=== PATIENT | female | born 1975 | race Caucasian/White ===

== ENCOUNTER 2017-01-06 18:30 | Emergency (ER) | payer BC ==
--- NOTE | ~2017-01-06 | ER ---
PATIENT'S NAME: DALILA RAYA [facility] AGE: 41 Y [address] ROOM: [place] [address] LOCATION: ED ADMIT DATE: 01/06/2017 ER/Outpatient Report DISCHARGE DATE: 01/06/2017 FAMILY PHYSICIAN: Adonay Valdez MD ATTENDING PHYSICIAN: Ivan Brooks Time of Arrival: 1830 hours. Time of Evaluation: 1837 hours. CHIEF COMPLAINT: Vomiting. HISTORY OF PRESENT ILLNESS: This patient is a 41-year-old female who presents to the emergency department today with chief complaint of vomiting. The patient has a history of metastatic breast cancer. She is currently on chemotherapy and last chemotherapy was on Tuesday. She has been taking Neupogen. She reports that she has not been able to keep anything down for the past day. She has had vomiting x10. She has been unable to take her pills. Denies any fevers or chills. No urinary frequency, urgency, or painful urination. No diarrhea or constipation. No blood in her stool. No dark tarry stools. She has had a chronic cough. Denies any shortness of breath. No chest pain. PAST MEDICAL HISTORY: Stage IV metastatic breast cancer with mets to the bone and lung. PAST SURGICAL HISTORY: , bilateral mastectomies, port on the right chest. SOCIAL HISTORY: The patient denies any tobacco, alcohol, or illicit drug use. ALLERGIES: SULFA. MEDICATIONS: Please see list. ONCOLOGIST: Dr. Mcleod. REVIEW OF SYSTEMS: All systems are reviewed by myself and are negative with the exception of those discussed in HPI and past medical history. PATIENT'S NAME: DALILA RAYA [facility] AGE: 41 Y [address] ROOM: [place] [address] LOCATION: ED ADMIT DATE: 01/06/2017 ER/Outpatient Report DISCHARGE DATE: 01/06/2017 FAMILY PHYSICIAN: Adonay Valdez MD ATTENDING PHYSICIAN: Ivan Brooks PHYSICAL EXAMINATION: VITAL SIGNS: Weight 63.4 kg, blood pressure 153/79, pulse 98, respiratory rate 20, temperature 97.2, oxygen saturation 98% on room air. GENERAL: The patient is a 41-year-old female, who appears stated age, in no acute distress at this time. HEENT: Head: Normocephalic, atraumatic. Pupils are equal, round, and reactive to light and accommodation. Extraocular motions are intact. Nares are patent bilaterally. TMs are clear. Oropharynx is clear. Mucous membranes are moist. NECK: Supple. There is no nuchal rigidity. CARDIOVASCULAR: Regular rate and rhythm. No murmurs, rubs, or gallops. LUNGS: Clear to auscultation bilaterally. No wheezes, rales, or rhonchi. ABDOMEN: Soft, nontender, and nondistended. No rebound, rigidity, or guarding. MUSCULOSKELETAL: The patient moves all 4 extremities. SKIN: Warm and dry. LABORATORY DATA AND X-RAYS: Obtained. Lactate is normal. CBC: White blood cell count 41.4, hemoglobin 8.8, hematocrit 25.8, platelets 109. ANC is 41.4, 1% bands. Coags are normal. Procalcitonin is 0.14. CMP is remarkable for sodium 133, potassium 3.1, otherwise normal. Alkaline phosphatase 174. LFTs are normal. CK, CK- MB, and troponins are all normal. Urine hCG is negative. CT scan of the chest is obtained. I have discussed the results with the radiologist. She has no evidence of PE. There is a worsening right pleural effusion with lung mets. It is worse compared to her PET scan 1 month ago. IMPRESSION: 1. Large right pleural effusion with lung metastasis secondary to stage IV breast cancer. 2. Nausea and vomiting. 3. Initial visit. EMERGENCY DEPARTMENT COURSE: The patient was brought back to the examination room. Seen and evaluated by myself. A port is established. The patient was given 1 L of normal saline. She was given 10 mg of Reglan IV as well as 25 mg of Benadryl IV. This resulted in significant improvement in the patient's symptoms. She is tolerating p.o. here in the emergency department. I have discussed the results with the patient. She is having no shortness of breath right now. She feels better. She is requesting to go home. I have discussed with the radiologist possible thoracentesis tomorrow. The patient does request to go home at this time. She reports she feels much better. We will arrange for thoracentesis tomorrow. We have contacted centralized scheduling that Radiology does know as well. This will be set up for tomorrow. The patient also reports she has Neupogen tomorrow. I have discussed. I would like her to follow up with Dr. PATIENT'S NAME: DALILA RAYA [facility] AGE: 41 Y [address] ROOM: [place] [address] LOCATION: ED ADMIT DATE: 01/06/2017 ER/Outpatient Report DISCHARGE DATE: 01/06/2017 FAMILY PHYSICIAN: Adonay Valdez MD ATTENDING PHYSICIAN: Ivan Brooks, her primary care doctor in 2 days for re-evaluation. I have discussed hjzbbr-de-hutl instructions including worsening symptoms, chest pain, worsening shortness of breath, fevers, or any other concerns to return to the emergency department as soon as possible. The patient is agreeable without further questions. DISPOSITION: The patient is discharged home in good condition. DO JUAN JOSE PLASENCIA/modl /[id number] d: 01/07/17211 t: 01/12/17 1315, OUTPATIENT REPORT
[2017-01-06 19:13] LABS: HEMATOCRIT 25.8 % (33.0-46.0); HEMOGLOBIN 8.8 g/dL (10.0-15.0); MCHC 34.1 gm/dL (32.0-36.5); MCV 90.8 fl (83.0-98.0); MPV 10.2 fl (9.4-12.4); PLATELET COUNT 109 K/uL (150-450); RBC 2.84 M/uL (3.50-5.50); RDW-CV 20.6 % (11.9-14.6)
[2017-01-06 19:17] LABS: WBC 41.4 K/uL (4.0-11.0)
[2017-01-06 19:23] LABS: PROTIME 10.9 SECONDS (9.6-11.1)
[2017-01-06 19:36] LABS: ALBUMIN 3.9 gm/dL (3.5-5.0); ALK PHOS 174 IU/L (33-138); ALT 22 IU/L (12-78); ANION GAP 14.1 (10.0-19.0); AST 28 IU/L (10-40); BLOOD UREA NITROGEN 13 mg/dL (6-24); CALCIUM 8.8 mg/dL (8.5-10.5); CHLORIDE 96 mMol/L (96-110); CO2 26 mMol/L (22-32); CPK 39 IU/L (21-215); CREATININE 0.8 mg/dL (0.5-1.1); ESTIMATED GFR (MDRD EQUATION) > 60; POTASSIUM 3.1 mMol/L (3.7-5.1); SODIUM 133 mMol/L (135-145); TOTAL PROTEIN 7.6 g/dL (6.0-8.4)
[2017-01-06 19:37] LABS: TOTAL BILIRUBIN 0.6 mg/dL (0.0-1.5)
[2017-01-06 19:40] LABS: ABSOLUTE NEUTROPHIL CT (ANC) 41.4 K/uL (1.8-7.8); BANDED NEUTROPHIL # 0.4 K/uL (0.0-0.1); BANDED NEUTROPHILS % 1 %; LYMPHOCYTE # 0.4 K/uL (0.8-4.0); LYMPHOCYTE % 1 %; SEGMENTED NEUTROPHIL % 99 %
[2017-01-06 20:27] LABS: BILIRUBIN URINE NEGATIVE (NEGATIVE); BLOOD URINE NEGATIVE /UL (NEGATIVE); COLOR URINE STRAW (YELLOW); GLUCOSE URINE 50 mg/dL (NEGATIVE); KETONE URINE 5 mg/dL (NEGATIVE); LEUKOCYTES URINE NEGATIVE /UL (NEGATIVE); NITRITE URINE NEGATIVE (NEGATIVE); PROTEIN URINE 30 mg/dL (NEGATIVE); SPEC GRAVITY URINE 1.005 (1.003-1.035); TURBIDITY URINE CLEAR (CLEAR); UROBILINOGEN URINE NORMAL (NORMAL)
[2017-01-06 20:34] LABS: BACTERIA URINE NEGATIVE (NEGATIVE); EPITHELIAL URINE 0-2 #/HPF (NEGATIVE); RBC URINE NEGATIVE #/HPF (NEGATIVE); WBC URINE 0-2 #/HPF (NEGATIVE)
[2017-01-07] MEDS ORDERED: K-TAB 10MEQ10 MEQ PO (09:32)
[2017-01-07] MEDS ORDERED: ZOFRAN8 MG PO (09:33)
[2017-01-07] MEDS ORDERED: ROXICODONE 5MG (5 MG PO (09:33)
[2017-01-07] MEDS ORDERED: ATIVAN 0.5MG0.5 MG PO (09:34)
[2017-01-07] MEDS ORDERED: COMPAZINE10 MG PO (09:34)
[2017-01-07] MEDS ORDERED: OXYCONTIN60 MG PO (09:34)
[2017-03-03] MEDS ORDERED: TESSALON PERLE100 MG PO (13:11)
[2017-03-03] MEDS ORDERED: IBUPROFEN800 MG PO (13:12)
[2017-04-20] MEDS ORDERED: VALIUM2 MG PO (09:42)
[2017-04-20] MEDS ORDERED: TYLENOL325 MG PO (09:43)
== END 2017-01-06 21:44 | disposition disaster alternative care site (69) ==
LOC: GMED 18:30
PROVIDERS: Emergency Medicine
DX: R11.2 Nausea with vomiting, unspecified (principal); C50.919 Malignant neoplasm of unspecified site of unspecified female breast; C78.00 Secondary malignant neoplasm of unspecified lung; J91.0 Malignant pleural effusion; Z88.2 Allergy status to sulfonamides
CPT/HCPCS: J1200; J1642; J2765; J7030; Q9967

== ENCOUNTER → 2017-01-07 | Outpatient (CLI) | payer BC ==
[~2017-01-07] MED LIST: ATIVAN 0.5MG0.5 MG PO; AUGMENTIN250 MG PO; COMPAZINE10 MG PO; DECADRON4 MG PO; DILANTIN100 MG PO; IBUPROFEN800 MG PO; K-TAB 10MEQ10 MEQ PO; LIDOCAINE-PRIL1 EACH TOP; MAGNESIUM400 M1 PO; OXYCONTIN60 MG PO; PROZAC40 MG PO; ROBITUSSIN100 MG/5 M PO; ROXICODONE 5MG (5 MG PO; SENNA8.6 MG PO; SEROQUEL25 MG PO; TESSALON PERLE100 MG PO; TYLENOL325 MG PO; VALIUM2 MG PO; XGEVA120 MG/1.7 SUB-Q; ZOFRAN8 MG PO; ZYVOX600 MG PO
== END | disposition disaster alternative care site (69) ==
LOC: GOPD 08:30
PROC: 0W993ZZ Drainage of Right Pleural Cavity, Percutaneous Approach (ICD-10-PCS; principal; 2017-01-07)
DX: J90 Pleural effusion, not elsewhere classified (principal)
CPT/HCPCS: J1642

== ENCOUNTER 2017-01-08 15:31 | Observation (INO) | payer BC ==
[~2017-01-08] VITALS: Ht 172.7 cm; Wt 63.0 kg
--- NOTE | ~2017-01-08 | CON ---
PATIENT'S NAME: DALILA ANNA [facility] AGE: 41 Y [address] ROOM: [address] [address] LOCATION: GPCU ADMIT DATE: 01/08/2017 Consultation DISCHARGE DATE: FAMILY PHYSICIAN: Adonay Valdez MD ATTENDING PHYSICIAN: CHANDANA SO REFERRING PHYSICIAN: Chandana So MD REASON FOR CONSULT: Elevated cardiac enzymes. HISTORY OF PRESENT ILLNESS: Ms. Anna is a 41-year-old female with history of stage IV metastatic breast cancer. She had been symptomatic with complaints of increasing shortness of breath. She was found to have right-sided pleural effusion and she underwent thoracentesis few days ago. However, she continued to remain short of breath and presently she is short of breath on walking very short distances. She denied any history of chest pain. She also complained of cough with mucoid and mucopurulent expectoration. She denied any fever. She also complained of heart palpitations. She had nausea and yesterday she had diarrhea. In the emergency room, she was found to have tachycardia with a pulse rate of 115 beats per minute and blood pressure of 106/85 mmHg and oxygen saturation of 99% on room air. Her troponin was mildly elevated at 0.118. The patient had workup for PE with CT scan, which was negative. Also, it showed decreased volume in the right pleural effusion. She was also noted to have metastatic involvement of the pleura and lung parenchyma with multiple small pleural and parenchymal nodules. There is also mediastinal hilar adenopathy and large metastatic sternal mass. She was admitted for further management. PAST MEDICAL HISTORY: Stage IV breast cancer, status post bilateral mastectomy. Presently, the patient is on chemotherapy. PAST SURGICAL HISTORY: Bilateral mastectomy, fibroid removal, hernia. FAMILY HISTORY: Both her parents are alive. Her father has prostate cancer. SOCIAL HISTORY: The patient stated that her from non-Hodgkin's lymphoma. She has 2 children. She is a nonsmoker and nonalcoholic. PHYSICAL EXAMINATION: GENERAL: She is awake, alert, and oriented and in no distress. VITAL SIGNS: Her pulse rate is 97 beats per minute. Blood pressure is 121/65, temperature 98.2, respiratory rate 16. PATIENT'S NAME: DALILA ANNA [facility] AGE: 41 Y [address] ROOM: [id number] [place], [place] [address] LOCATION: GPCU ADMIT DATE: 01/08/2017 Consultation DISCHARGE DATE: FAMILY PHYSICIAN: Adonay Valdez MD ATTENDING PHYSICIAN: CHANDANA SO HEENT: Her head is atraumatic and normocephalic. NECK: No significant jugular venous distention is present. CVS: S1 and S2 are audible. They are regular in rate and rhythm with no audible murmur. RESPIRATORY: Bilateral vesicular breath sounds are audible. Breath sounds are diminished at the right base. Also percussion note is dull in the right base. ABDOMEN: Soft and nontender. Bowel sounds are present. EXTREMITIES: Showed no significant pedal edema. NEUROLOGIC: The patient is awake, alert, and oriented. LABORATORY DATA: EKG is sinus tachycardia at 102 beats per minute. No acute ST-T wave changes. Sodium 138, potassium 3.2, chloride 106, CO2 of 21, BUN 17, creatinine 0.7. AST 16, ALT 20. CPK 31, CK-MB 1. Troponin 0.118, 0.103, 0.112, and the last set was 0.097. BNP 360. White blood cell count 6.8, hemoglobin 7.5, platelet count 54. CT scan showed no findings of pulmonary embolism. Decreased volume of right pleural effusion was noted. Metastatic involvement of pleura and lung parenchyma with multiple small pleural and parenchymal nodules were noted. Mediastinal and hilar adenopathy, large metastatic sternal mass. ASSESSMENT AND PLAN: 1. Stage IV metastatic breast cancer. 2. Severe anemia. 3. Thrombocytopenia. 4. Nausea and vomiting. 5. Elevated cardiac troponin. 6. Right-sided pleural effusion. Cardiology was consulted for elevated troponin. Her CPK and CK-MB levels are normal. Her serial troponin trend is not suggestive of acute coronary syndrome. Minimal elevation in troponin is likely secondary to demand-supply mismatch due to severe anemia and patient was tachycardic. Dyspnea is likely due to pleural effusion and severe anemia. Since the patient is on chemotherapy, we will obtain 2D echocardiogram to evaluate left ventricular function. Her symptomatology and presentation is not suggestive of acute coronary syndrome. Management of metastatic breast cancer, anemia, and thrombocytopenia per primary care team. The plan of care was discussed with the patient and the nursing. Thank you for allowing us in taking part in the care of this pleasant lady. We will follow the patient along with you. BISHOP KHAN MD PATIENT'S NAME: DALILA ANNA [facility] AGE: 41 Y [address] ROOM: [place] [address] [facility] ADMIT DATE: 01/08/2017 Consultation DISCHARGE DATE: FAMILY PHYSICIAN: Adonay Valdez MD ATTENDING PHYSICIAN: CHANDANA SO/moe /[id number] d: 01/09/17 0928 t: 01/19/17 1601, CONSULTATION REPORT
--- NOTE | ~2017-01-08 | CON ---
PATIENT'S NAME: DALILA RAYA [facility] AGE: 41 Y [address] ROOM: [place] [address] LOCATION: [facility] ADMIT DATE: 01/08/2017 Consultation DISCHARGE DATE: FAMILY PHYSICIAN: Adonay Valdez MD ATTENDING PHYSICIAN: CHANDANA TOBAR ADDENDUM: CURRENT MEDICATIONS: The patient is on, 1. Oxycodone 40 mg b.i.d. 2. Lorazepam 1 mg at bedtime p.r.n. 3. Benzonatate 100 mg q.4 hours p.r.n. 4. Guaifenesin 100 mg q.4 hours p.r.n. 5. Acetaminophen 1000 mg q.i.d. p.r.n. 6. Ipratropium-albuterol inhaler q.4 hours p.r.n. 7. Senna 1 tablet p.r.n. 8. Prochlorperazine 10 mg q.4 hours p.r.n. 9. Oxycodone 10 mg q.4 hours p.r.n. 10. Ondansetron 8 mg q.4 hours p.r.n. 11. Lorazepam 0.5 mg t.i.d. p.r.n. 12. Ibuprofen 200 mg q.6 hours p.r.n. 13. Potassium chloride 20 mEq b.i.d. 14. Filgrastim 480 mcg subcu. 15. Gemcitabine, dexamethasone, and cisplatin. MD PARTH JADE/modl /[id number] d: 01/09/17 0957 t: 01/19/17 1606, CONSULTATION REPORT
--- NOTE | ~2017-01-08 | DS ---
PATIENT'S NAME: DALILA ANNA [facility] AGE: 41 Y [address] ROOM: [id number] [place], [place] [address] LOCATION: GPCU ADMIT DATE: 01/08/2017 Discharge Summary DISCHARGE DATE: 01/09/2017 FAMILY PHYSICIAN: Adonay Valdez MD ATTENDING PHYSICIAN: Kareem So FINAL/PRIMARY/AND DISCHARGE DIAGNOSES: Dyspnea and tachycardia secondary to hypovolemia and recent pleural effusion drainage. ADDITIONAL DIAGNOSES: 1. Elevated troponin, likely the supply-demand mismatch. 2. History of stage IV breast cancer, on chemotherapy treatment. 3. Acute kidney injury, resolved. 4. Cough. 5. Anemia of chronic disease as well as secondary due to antineoplastic agents. DISCHARGE LABORATORIES: CBC on 01/09/2017 showed hemoglobin 7.85, hematocrit 22.3, platelets 54. WBC is 6.8. Procalcitonin was normal. Complete metabolic panel showed sodium of 138, potassium 3.2, chloride 21, calcium 6.8, BUN 17, creatinine 0.7. GFR greater than 60. IMAGING: CT, PE protocol on 01/08/[address] findings of pulmonary embolism, but resolved pleural effusion. Metastatic involvement of pleura and lung parenchyma with small nodules as well as a large metastatic sternal mass. Implanted vascular access catheter that was in place. CONSULTATIONS: Dr. Reddy, [facility] Cardiology, 01/09/2017. Echocardiogram 01/09/2017, pending. BRIEF HOSPITAL COURSE: Ms Anna is a 41-year-old female with a past medical history as noted above, is admitted for the above complaint. She was dyspneic as well as tachycardic. She received 2 L of normal saline bolus as well as maintenance fluids. She was tolerating her diet well and ambulating well upon discharge. Her acute kidney injury resolved and she was feeling much better. She did have a delutional anemia of 9.1, dropped down to 7.5. No evidence of acute blood loss. The patient overall tolerated her hospitalization well. She was tolerating a diet and ambulating without significant dyspnea or tachycardia at the conclusion of her hospitalization. She was discharged home in a stable fashion to follow up with her oncologist for chemotherapy and consideration of transfusion. She will also need to follow up with primary care provider within 1 week. PATIENT'S NAME: DALILA ANNA [facility] AGE: 41 Y [address] ROOM: [facility] [place], [place] [address] LOCATION: GPCU ADMIT DATE: 01/08/2017 Discharge Summary DISCHARGE DATE: 01/09/2017 FAMILY PHYSICIAN: Adonay Valdez MD ATTENDING PHYSICIAN: Kareem So FOLLOWUP RECOMMENDATIONS: 1. Follow up with primary oncologist, 01/10/2017, for chemotherapy and consideration of transfusion versus other management. 2. Follow up with primary care provider within 1 week. 3. Drink plenty of fluids. If there is any worsening of your symptoms, please come to the [facility], notify your oncologist, or go to the ER. DISCHARGE CONDITION: Stable. PROGNOSIS: Poor. MD KIMBERLEY NOLAN/moe /[id number] d: 01/10/17925 t: 01/11/17 0958, DISCHARGE SUMMARY
--- NOTE | ~2017-01-08 | HP ---
PATIENT'S NAME: DALILA ANNA [facility] AGE: 41 Y [address] ROOM: [facility] [place] [place], [place] [address] LOCATION: GPCU ADMIT DATE: 01/08/2017 History & Physical DISCHARGE DATE: FAMILY PHYSICIAN: Adonay Valdez MD ATTENDING PHYSICIAN: CHANDANA TOBAR DATE OF SERVICE: CHIEF COMPLAINT: "I am short of breath." HISTORY OF PRESENT ILLNESS: Ms. Anna is a 41-year-old female with a history of stage IV metastatic breast cancer, who comes in as admission to [facility] Emergency Department for elevated troponins as well as tachycardia. The patient was in her usual state of health when she began experiencing shortness of breath. She was previously seen for a right pleural effusion and underwent thoracentesis 2 days prior to admission. The patient since that time has had significant shortness of breath. She has also felt like heart has been racing. Because of those reasons, the patient decided to present to the emergency department for further evaluation and management. Upon reaching the emergency department, the patient had pulse 115, blood pressure 106/85, respirations 20, and 99% on room air. The patient had a number of tests performed including a CRP, which was elevated at 4.16. Troponin was elevated at 0.118. The patient also had GFR 54, alkaline phosphatase 153, BUN 28, creatinine 1.1, glucose 119, and calcium 7.9. Procalcitonin was elevated at 0.08. CBC showed an elevation with WBC at 11.4, hemoglobin 9.1, hematocrit 28.6, and platelets 84. The patient also had a chest x-ray, which did not show significant changes. Because of the concern for pulmonary embolism given her metastatic cancer, the CT PE protocol was obtained, which showed a decreased volume of the right pleural effusion since prior CT imaging with evidence of thoracentesis, metastatic involvement of the pleura and lung parenchyma with multiple small pleural and parenchymal nodules identified. There was also mediastinal hilar adenopathy as well as a large metastatic sternal mass. There was no other significant abnormalities that were noted. The patient was then transferred to the floor for further evaluation and management. She was started on heparin drip at that time as well. Upon reaching the floor, the patient states that she is short of breath and has had a cough that has been going on for some time. She is also denying any chest pains. She is feeling overall pretty similar to before. ALLERGIES: PATIENT'S NAME: DALILA ANNA [facility] AGE: 41 Y [address] ROOM: [id number] [place], [place] [address] [facility] ADMIT DATE: 01/08/2017 History & Physical DISCHARGE DATE: FAMILY PHYSICIAN: Adonay Valdze MD ATTENDING PHYSICIAN: CHANDANA TOBAR. PAST MEDICAL HISTORY: Stage IV breast cancer diagnosed in 2016 with original breast cancer diagnosed in 2012. She otherwise, with the exception of having some palpitations secondary to her chemo as well as her cancer, has been healthy. PAST SURGICAL HISTORY: 1. Mastectomy, bilateral. 2. Fibroid removal. 3. Hernia. 4. x2. FAMILY HISTORY: Both of the patient's parents are alive. Mother is alive at age 70 and reported to be completely healthy. Father is alive at age 73 and reported to have terminal prostate cancer, but otherwise has been healthy. SOCIAL HISTORY: The patient has had a very tragic history. Her from non- Hodgkin's lymphoma at age 36. She has 2 children ages 12 and 7. She has reported some tobacco use in the high school, but none since, and she reports that she drank alcohol "quite a bit before this all happened." She denies illegal drug use. PHYSICAL EXAMINATION: VITAL SIGNS: Blood pressure is 123/63, pulse is 98, respirations 18, and temperature is 98. GENERAL: A very pleasant, interactive, adult female, in no acute distress. HEENT: Head: Normocephalic, atraumatic. Eyes: Conjunctivae clear. Sclerae white. ENT: Mucous membranes are moist. HEART: Regular rate and rhythm without murmurs, rubs, clicks, or gallops. LUNGS: Rhonchus sounds present anteriorly. Otherwise, clear to auscultation. ABDOMEN: Soft, nontender, nondistended. Bowel sounds are positive. EXTREMITIES: Warm and well perfused. No clubbing, cyanosis, or edema. SKIN: No rashes. NEURO: The patient is alert and oriented. CHEST: There is a port present in the right superior chest. LABORATORY AND IMAGING DATA: As per HPI. IMPRESSION, REPORT, AND PLAN: A 41-year-old female with tachycardia and elevated troponins. 1. Dyspnea. PATIENT'S NAME: DALILA ANNA [facility] AGE: 41 Y [address] ROOM: [id number] [place], [place] [address] LOCATION: GPCU ADMIT DATE: 01/08/2017 History & Physical DISCHARGE DATE: FAMILY PHYSICIAN: Adonay Valdez MD ATTENDING PHYSICIAN: CHANDANA TOBAR 2. Elevated troponins. 3. History of stage IV breast cancer, currently on chemotherapy treatment. 4. Acute kidney injury: GFR 56, BUN 28, and creatinine 1.1. I actually think that the patient is dehydrated based off her blood work. Previous GFR as well as XBH-lx-ngycgcquwl ratio were normal. This BUN-to- creatinine ratio would indicate that she has a prerenal cause of acute kidney injury, and so we will aggressively fluid rehydrate her with 1000 mL bolus and was to be followed by maintenance fluids thereafter. I think that a lot of her tachycardia is likely related to that. Would not necessarily give us any answers about the shortness of breath. I will go ahead and trend out her troponins here overnight and continue her on a heparin drip at this time. Cardiology has been consulted, but has not yet seen the patient. 5. Cough: We will treat the cough with Robitussin and Tessalon Perles as needed. We will also get a respiratory pathogen panel. CT and chest x- ray do not seem to indicate that there is any sort of infection, but she does have an elevated CRP, which is likely secondary to cancer and elevated white cell count. Would just continue to watch and see if there are any other issues. It does not appear that there is any sort of pneumothorax or other complication from thoracentesis. 6. Anemia, acute blood loss/chronic disease: Hemoglobin is 9.1. We will just continue to watch. Fluids as noted above. Electrolytes: Stable. We will monitor in the morning. Nutrition: General diet for now. N.p.o. after midnight in case Cardiology wants to do procedure. Code status: Full code per my discussion with the patient. DISPOSITION: I think that Dr. Valdez is actually out of town until Tuesday. I will assume the patient's care if he is not available until her discharge or his return, whichever comes first. MD KIMBERLEY NOLAN/moe PATIENT'S NAME: DALILA ANNA [facility] AGE: 41 Y [address] ROOM: [place] [address] LOCATION: [facility] ADMIT DATE: 01/08/2017 History & Physical DISCHARGE DATE: FAMILY PHYSICIAN: Adonay Valdez MD ATTENDING PHYSICIAN: CHANDANA TOBAR /[id number] D: [id number] T: [id number] HISTORY & PHYSICAL
--- NOTE | ~2017-01-08 | CON ---
PATIENT'S NAME: DALILA RAYA [facility] AGE: 41 Y [address] ROOM: [place] [address] [facility] ADMIT DATE: 01/08/2017 Consultation DISCHARGE DATE: FAMILY PHYSICIAN: Adonay Valdez MD ATTENDING PHYSICIAN: CHANDANA TOBAR ADDENDUM: REVIEW OF SYSTEMS: The patient denied any headache. No history of recent visual change. History of nausea is present. No history of vomiting. History of diarrhea is present. No history of chest pain. History of cough and expectoration is present. No history of fever. No history of abdominal pain. No history of syncope. The patient complained of increase in shortness of breath. Review of other systems is essentially negative. MD PARTH JADE/moe /[id number] d: 01/09/17 0950 t: 01/19/17 1604, CONSULTATION REPORT
--- NOTE | ~2017-01-08 | ER ---
PATIENT'S NAME: DALILA RAYA [facility] AGE: 41 Y [address] ROOM: [place] [address] LOCATION: GPCU ADMIT DATE: 01/08/2017 ER/Outpatient Report DISCHARGE DATE: FAMILY PHYSICIAN: Adonay Valdez MD ATTENDING PHYSICIAN: CHANDANA SO CHIEF COMPLAINT: Shortness of breath. HISTORY OF PRESENT ILLNESS: The patient states that she has active breast cancer and is receiving palliative chemo. She was seen 2 days ago for nausea and vomiting, and at that time was found to have a large pleural effusion that was drained yesterday. She denies any fevers, but states that her shortness of breath is getting worse, since the thoracentesis. She states that she can hardly even walk across a room, which is very unusual for her as well. She also feels her heart is racing at rest. She denies any chest pain or pressure associated with this. She denies any other symptoms associated with this. PAST MEDICAL HISTORY: Documented on the record and reviewed by me. SOCIAL HISTORY: Documented on the record and reviewed by me. MEDICATIONS: Documented on the record and reviewed by me. ALLERGIES: DOCUMENTED ON THE RECORD AND REVIEWED BY ME. REVIEW OF SYSTEMS: All systems reviewed and negative except as noted in the HPI. PHYSICAL EXAMINATION: VITAL SIGNS: Blood pressure 106/85, pulse 115, respiratory rate is 20, temperature 98.6, SpO2 is 99% on room air. Pain is rated at 0/10. GENERAL: An age appropriate female in mild distress, but no pain resting on the exam table. NEUROLOGIC: Awake and alert. GCS is 15. No focal deficits or obvious asymmetry on exam. HEENT: Normocephalic and atraumatic. The eyes are PERRL. The oropharynx is clear. NECK: Supple. Trachea is midline. CHEST: The heart is tachycardic with no obvious murmurs. PATIENT'S NAME: DALILA RAYA [facility] AGE: 41 Y [address] ROOM: [place] [address] LOCATION: GPCU ADMIT DATE: 01/08/2017 ER/Outpatient Report DISCHARGE DATE: FAMILY PHYSICIAN: Adonay Valdez MD ATTENDING PHYSICIAN: CHANDANA SO LUNGS: Grossly clear to auscultation bilateral except for the right lower lobes, which are coarse. The chest wall is nontender to palpation throughout. There are several lumps and masses including a port palpable on exam. BACK: Nontender to palpation throughout the site of thoracentesis has a clean dressing applied over it. ABDOMEN: Soft, nontender, and nondistended. EXTREMITIES: Cool, but well perfused with no erythema and no edema. SKIN: Otherwise, warm, dry, and intact. LABS AND X-RAYS: Chest x-ray reveals decreased pleural effusion compared to prior exam with no obvious infiltrates per my read, no appreciable pneumothorax. Chest CT without pulmonary embolism, no pneumothorax, decreased effusion. EKG sinus tachycardia, ventricular rate of 100 to 105 with a QTc of 450, otherwise, normal intervals and axis. No signs of acute ischemia or dysrhythmia. No comparison was available at this time. LABS: Serum lactate 2.2. WBC is 11.4, hemoglobin is 9.1, and platelets of 84. INR is 1.0. Sodium is 138, potassium 3.7, chloride is 103, CO2 is 24, BUN is 28, creatinine is up to 1.1 from 0.8 two days ago. GFR is down to 54 from greater than 60 two days ago. LFTs are notable for an alkaline phosphatase of 153, otherwise, within normal limits. CK-MB is 1.2. Troponin I 0.118. CRP 4.26. Procalcitonin 0.08. Her absolute neutrophil count is 10.8. Blood type is A- positive with no antibodies. ESR is 80. IMPRESSION: 1. Shortness of breath. 2. Troponin elevation. 3. Tachycardia sinus without explanation at rest. 4. Elevated ESR. EMERGENCY DEPARTMENT COURSE: The patient was evaluated at bedside. Based on her history of tachycardia and clinical gestalt pulmonary embolism was number one on the differential. Based on Wells criteria, this makes her high risk. Her renal function had declined slightly in the last few days, however I think that it is clinically warranted to perform CT in this situation, and thus CTA of the chest was obtained as noted above without pulmonary embolism. Her labs were concerning for heart muscle damage with an elevated troponin, which has not been present in the past. I do not think she is having true coronary ischemia, but the overall presentation is concerning. She was given some fluids and did have improvement in her heart rate. She was started on a heparin drip before results of any studies were back based on her clinical presentation. We will PATIENT'S NAME: DALILA RAYA [facility] AGE: 41 Y [address] ROOM: [id number] [place] [id number] LOCATION: [facility] ADMIT DATE: 01/08/2017 ER/Outpatient Report DISCHARGE DATE: FAMILY PHYSICIAN: Adonay Valdez MD ATTENDING PHYSICIAN: CHANDANA SO admit her to Dr. So covering provider for patient's primary Dr. Valdez and I did consult Dr. Reddy, orchid hand to help and evaluate the patient. They will likely evaluate her tomorrow throughout the day. All questions were answered and the patient was admitted to the hospital without further issue. MD ISAAK MILLARD/moe /[id number] d: 01/09/1710 t: 01/11/17 0633, OUTPATIENT REPORT
[~2017-01-08 15:31] MED LIST changes: -AUGMENTIN250 MG PO; -DECADRON4 MG PO; -DILANTIN100 MG PO; -IBUPROFEN800 MG PO; -LIDOCAINE-PRIL1 EACH TOP; -MAGNESIUM400 M1 PO; -PROZAC40 MG PO; -ROBITUSSIN100 MG/5 M PO; -SENNA8.6 MG PO; -SEROQUEL25 MG PO; -TESSALON PERLE100 MG PO; -TYLENOL325 MG PO; -VALIUM2 MG PO; -XGEVA120 MG/1.7 SUB-Q; -ZYVOX600 MG PO
[2017-01-08 16:11] LABS: HEMATOCRIT 26.8 % (33.0-46.0); HEMOGLOBIN 9.1 g/dL (10.0-15.0); MCH 31.3 pg (27.0-34.0); MCV 92.1 fl (83.0-98.0); MPV 10.4 fl (9.4-12.4); RBC 2.91 M/uL (3.50-5.50); RDW-CV 20.4 % (11.9-14.6); WBC 11.4 K/uL (4.0-11.0)
[2017-01-08 16:12] LABS: PLATELET COUNT 84 K/uL (150-450)
[2017-01-08 16:24] LABS: PROTIME 10.9 SECONDS (9.6-11.1); PTT 26 SECONDS (25-32)
[2017-01-08 16:31] LABS: ALBUMIN 3.6 gm/dL (3.5-5.0); ANION GAP 14.7 (10.0-19.0); CALCIUM 7.9 mg/dL (8.5-10.5); CREATININE 1.1 mg/dL (0.5-1.1); POTASSIUM 3.7 mMol/L (3.7-5.1); TOTAL PROTEIN 6.7 g/dL (6.0-8.4)
[2017-01-08 16:32] LABS: TOTAL BILIRUBIN 0.3 mg/dL (0.0-1.5)
[2017-01-08 16:39] LABS: ABSOLUTE NEUTROPHIL CT (ANC) 10.8 K/uL (1.8-7.8); BANDED NEUTROPHIL # 0.1 K/uL (0.0-0.1); BANDED NEUTROPHILS % 1 %; LYMPHOCYTE # 0.3 K/uL (0.8-4.0); LYMPHOCYTE % 3 %; MONOCYTE # 0.2 K/uL (0.0-1.0); SEGMENTED NEUTROPHIL # 10.7 K/uL (1.8-7.8); SEGMENTED NEUTROPHIL % 94 %
[2017-01-08] MEDS ORDERED: SENNA8.6 MG PO (19:48)
[2017-01-08] MEDS ORDERED: PROZAC40 MG PO (19:48)
[2017-01-08] MEDS ORDERED: IBUPROFEN800 MG PO (19:49)
[2017-01-09 00:44] LABS: ANION GAP 15.2 (10.0-19.0); BLOOD UREA NITROGEN 19 mg/dL (6-24); CHLORIDE 105 mMol/L (96-110); CO2 21 mMol/L (22-32); CREATININE 0.8 mg/dL (0.5-1.1); ESTIMATED GFR (MDRD EQUATION) > 60; POTASSIUM 3.2 mMol/L (3.7-5.1); SODIUM 138 mMol/L (135-145)
[2017-01-09 03:59] LABS: ALBUMIN 2.8 gm/dL (3.5-5.0); ALK PHOS 115 IU/L (33-138); ALT 20 IU/L (12-78); ANION GAP 14.2 (10.0-19.0); AST 16 IU/L (10-40); BLOOD UREA NITROGEN 17 mg/dL (6-24); CHLORIDE 106 mMol/L (96-110); CO2 21 mMol/L (22-32); CREATININE 0.7 mg/dL (0.5-1.1); ESTIMATED GFR (MDRD EQUATION) > 60; POTASSIUM 3.2 mMol/L (3.7-5.1); SODIUM 138 mMol/L (135-145); TOTAL PROTEIN 5.7 g/dL (6.0-8.4)
[2017-01-09 04:03] LABS: CALCIUM 6.8 mg/dL (8.5-10.5); TOTAL BILIRUBIN 0.2 mg/dL (0.0-1.5)
[2017-01-09 06:09] LABS: HEMATOCRIT 22.3 % (33.0-46.0); HEMOGLOBIN 7.5 g/dL (10.0-15.0); MCHC 33.6 gm/dL (32.0-36.5); MCV 92.1 fl (83.0-98.0); PLATELET COUNT 54 K/uL (150-450); RBC 2.42 M/uL (3.50-5.50); RDW-CV 19.9 % (11.9-14.6); WBC 6.8 K/uL (4.0-11.0)
[2017-01-09 07:21] LABS: ABSOLUTE NEUTROPHIL CT (ANC) 6.4 K/uL (1.8-7.8); BANDED NEUTROPHIL # 0.5 K/uL (0.0-0.1); BANDED NEUTROPHILS % 8 %; LYMPHOCYTE # 0.3 K/uL (0.8-4.0); LYMPHOCYTE % 5 %; MONOCYTE # 0.1 K/uL (0.0-1.0); SEGMENTED NEUTROPHIL # 5.9 K/uL (1.8-7.8); SEGMENTED NEUTROPHIL % 86 %
[2017-01-09] MEDS ORDERED: ROBITUSSIN100 MG/5 M PO (13:02)
[2017-01-09] MEDS ORDERED: TESSALON PERLE100 MG PO (13:02)
[2017-03-03] MEDS ORDERED: TESSALON PERLE100 MG PO (13:11)
[2017-03-03] MEDS ORDERED: IBUPROFEN800 MG PO (13:12)
[2017-04-20] MEDS ORDERED: VALIUM2 MG PO (09:42)
[2017-04-20] MEDS ORDERED: TYLENOL325 MG PO (09:43)
== END 2017-01-09 13:45 | disposition disaster alternative care site (69) ==
LOC: GMED 15:31 → GPCU 18:23
PROVIDERS: Emergency Medicine; ADMIT Family Medicine
DX: R06.00 Dyspnea, unspecified (principal); J90 Pleural effusion, not elsewhere classified; E86.1 Hypovolemia; R79.89 Other specified abnormal findings of blood chemistry; D64.81 Anemia due to antineoplastic chemotherapy; C50.919 Malignant neoplasm of unspecified site of unspecified female breast; R00.0 Tachycardia, unspecified; Z87.448 Personal history of other diseases of urinary system; Z88.2 Allergy status to sulfonamides; Z90.13 Acquired absence of bilateral breasts and nipples; Z98.890 Other specified postprocedural states; Z79.899 Other long term (current) drug therapy; Z79.01 Long term (current) use of anticoagulants
CPT/HCPCS: G0378; J1642; J1644; J7030; Q0164; Q9967

== ENCOUNTER 2017-02-04 09:49 | Inpatient (IN) | payer BC ==
[~2017-02-04] VITALS: Ht 180.3 cm; Wt 61.0 kg
--- NOTE | ~2017-02-04 | HP ---
PATIENT'S NAME: DALILA RAYA [facility] AGE: 41 Y [address] ROOM: [place] [address] LOCATION: GICU ADMIT DATE: 02/04/2017 History & Physical DISCHARGE DATE: FAMILY PHYSICIAN: Adonay Valdez MD ATTENDING PHYSICIAN: Natanael CRUZ DATE OF SERVICE: CHIEF COMPLAINT: Status epilepticus. HISTORY OF PRESENT ILLNESS: The patient is a 41-year-old female with past medical history of breast cancer with mets to lungs and bone, who presents here with seizure. The patient initially called EMS for chest pain and shortness of breath. Once EMS arrived at scene, the patient was noted to be in seizure. The patient's seizure resolved and was brought to the emergency department for further evaluation. During en route, the patient was noted to be postictal. In the ED, the patient also was noted to have another episode of seizure, general tonic- clonic seizure. She was given 5 mg diazepam with improvement of tonic-colonic seizure. However, the patient continued to have postictal confusion. Initial workup showed the patient was in severe metabolic acidosis with a lactate of 12. The patient was started on IV fluid and CT of head was acquired, which shows possible vasogenic edema with possible mass. The patient's metabolic derangement improved during stay and the patient now to be transferred to the ICU for further care. Unable to get much information from the patient as patient is still in postictal status. Discussed with sister and sister reports that patient has been diagnosed with breast cancer and is on currently on chemo, which include cisplatin and Gemzar and sees oncologist at [place]. She has also received some radiation to her head because of skull lesion. PAST MEDICAL HISTORY: Breast cancer. FAMILY HISTORY: Unable to obtain due to the patient's mentation. SOCIAL HISTORY: Unable to obtain due to the patient's mentation. ALLERGIES: UNABLE TO OBTAIN DUE TO THE PATIENT'S MENTATION. MEDICATIONS: PATIENT'S NAME: DALILA RAYA [facility] AGE: 41 Y [address] ROOM: [place] [address] LOCATION: GICU ADMIT DATE: 02/04/2017 History & Physical DISCHARGE DATE: FAMILY PHYSICIAN: Adonay Valdez MD ATTENDING PHYSICIAN: Natanael CRUZ Medication that we have currently shows that the patient is on: 1. Gemzar. 2. Dexamethasone. 3. Denosumab. 4. Cisplatin. 5. Compazine. 6. Acetaminophen. 7. Ativan as needed. 8. Ibuprofen. This medication not currently updated, we will await updated current medications. REVIEW OF SYSTEM: Unable to obtain due to the patient's mentation. PHYSICAL EXAMINATION: VITAL SIGNS: Blood pressure 122/83, heart rate of 130, O2 sats in 93, respiratory rate 18, and temperature of 98.4. GENERAL: The patient is awake. Does not follow commands and has unpurposeful movement and is trying to get off the bed. HEENT: Eyes: Sclerae non icterus. Pupils are equal, round, and reactive to light. She has eye bobbing. Nose: No nasal discharge. Ears: No ear discharge. NECK: No JVD noted. CHEST: The patient has port on the right chest. It looks clean, dry, and intact. The patient also has mass that can be felt on her chest wall. LUNGS: Rhonchi bilaterally. No wheezing was heard. No rales were heard. HEART: Tachycardic. No murmurs, rubs, or gallops. ABDOMEN: Soft. Nondistended. Bowel sounds present. EXTREMITIES: No edema. The patient range of motion intact. SHEAR HELPER: The patient alert and oriented x0. The patient is alert and has some unpurposeful movement and is trying to leave the bed. SKIN: Warm to touch. No lesion noted. LABORATORY DATA: White blood cell of 9, hemoglobin of 11.3, and platelet of 84 with an MCV of 100.3. Initial lactate was greater than 20, currently lactate is 8. Initial renal shows potassium of 3.9 and CO2 of 7, BUN of 23 and creatinine 1.3. Initial ABG shows a pH of 7.08, pCO2 44, pO2 of 15, and bicarb of 13. Repeat ABG after treatment shows a pH of 7.31, pCO2 of 30, pO2 of 91, and bicarb of 15. Cardiac lab shows troponin of 0.116. PATIENT'S NAME: DALILA RAYA [facility] AGE: 41 Y [address] ROOM: [address] [address] LOCATION: [facility] ADMIT DATE: 02/04/2017 History & Physical DISCHARGE DATE: FAMILY PHYSICIAN: Adonay Valdez MD ATTENDING PHYSICIAN: Natanael CRUZ IMAGING DATA: Chest x-ray shows increased large right pleural effusion with partial compressive atelectasis of the right lower lung. CT head shows no acute hemorrhage or midline shift identified. Irregular area of low attenuation involving the white matter at the high left parietal lobe with vasogenic edema associated with brain lesion is differential consideration this patient. Evolving area of ischemic infarct is also a differential consideration. ASSESSMENT AND PLAN: 1. Status epilepticus. The patient is a 41-year-old female with past medical history of breast cancer with metastases to lungs and bone presenting with a seizure. Currently, on postictal state. Etiology most likely secondary to brain lesion that is seen on a CT head. 2. The patient is currently on fosphenytoin, already received loading dose of fosphenytoin. We will start maintenance dose 12 hours of the loading dose. Neurology consulted and discussed the patient's presentation to have stat EEG. We will admit patient to the ICU. We will acquire MRI with and without contrast when the patient's mentation has improved. 3. Seizure precaution. We will admit this patient to ICU and will have Ativan p.r.n. for seizure. 4. Acute encephalopathy. 5. See above. 6. Anion gap metabolic acidosis. The patient is presenting with severe metabolic acidosis with anion gap close to 33. Etiology most likely to seizure activity with possible long episode of hypoxic respiratory failure. The patient currently is improving now. Initial lactate was greater than 20, now currently is 8. Her ABG has shown improvement. We will trend lactate, until lactate will normalize. We will continue with IV fluids. The patient is currently n.p.o. 7. Chest pain. 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 Etiology of chest pain unknown as of now. EKG shows sinus tachycardia. Troponin was noted to be mildly elevated to 0.116. We will trend troponin. PE was also entertained. However, we will hold off any anticoagulation for now as the patient seems to improve and also CT head shows possible vasogenic edema and lesion consideration being on masses versus evolving area of ischemic infarct. Since this is not clearly identified, starting the patient on anticoagulation when the patient can possibly have an ischemic infarct can exacerbate with hemorrhagic conversion. Therefore, we will hold any anticoagulation for now. We will repeat MRI and if MRI does not show any signs of ischemic change, we will consider anticoagulation and/or will acquire CTA angiogram when the patient's renal function and creatinine improves. 8. Elevated troponin, most likely secondary to demand. We will trend PATIENT'S NAME: DALILA RAYA [facility] AGE: 41 Y [address] ROOM: [place] [address] LOCATION: [facility] ADMIT DATE: 02/04/2017 History & Physical DISCHARGE DATE: FAMILY PHYSICIAN: Adonay Valdez MD ATTENDING PHYSICIAN: Natanael CRUZ troponin. Keep the patient on tele. 9. Hyperglycemia, etiology secondary to Decadron use. We will start patient on sliding scale insulin. 10. Possible brain lesion. We will acquire an MRI of the brain. We will start Decadron 10 mg IV and start 4 mg IV t.i.d. Urology is on board. Discussed case and plan with sister. 11. The patient's code status is full code. We will admit the patient to ICU. Greater than 30 minutes was spent in critical care of this patient in the emergency department. We will transfer the patient to the ICU. MD SABAS SHARIF/modl /[id number] D: 413 T: 805 HISTORY & PHYSICAL
--- NOTE | ~2017-02-04 | ECHO ---
Transthoracic Echocardiography Report (TTE) Demographics Patient Name DALILA RAYA Date of Study 02/05/2017 Patient Number [id number] Visit Number [id number] Date of 1975 Room Number G6229 Gender Female Number Age 41 year(s) Referring José Miguel Larkin MD Heat Engineering Teacher Jacky T, [facility] [place] Physician Stormy Physician Interpreting Kristie Blackwell Perinatal Instructor Physician MD Supervising Ordering Guanako Serrano MD, MD/MLP Physician Nurse Stress Fire Engine Operator Conclusions Summary Very limited echo due to breast implants and nodule on breastbone. Patient very sensitive to pain. The estimated left ventricular ejection fraction is 60%. Mild global pericardial effusion. There is possibly aortic regurgitation. Possible pleural effusion. Procedure Type of Study TTE procedure:Doppler , Color Doppler, Echo Limited w/o Contrast. Procedure Date Date: 02/05/2017 Start: 01:42 PM Study Location: Inpatient Portable Technical Quality: Limited visualization Indications:Tachycardia. Appropriate Use Criteria: 9 Patient Status: Routine HR: 94 bpm BP: 136/82 mmHg M-Mode/2D Measurements LVOT VTI: 16.7 cm Doppler Measurements AV Peak Velocity: 0.76 m/s MV Peak E-Wave: 0.61 m/s AV Peak Gradient: 2.3 mmHg MV Peak A-Wave: 0.7 m/s AV Mean Gradient: 2 mmHg MV E/A Ratio: 0.87 LVOT Peak Velocity: 0.9 m/s MV P1/2t: 68 msec E' Septal Velocity: 0.07 m/s E' Lateral Velocity: 0.05 m/s A' Septal Velocity: 0.1 m/s A' Lateral Velocity: 0.09 m/s Findings Left Ventricle Normal left ventricle size and function. Right Ventricle Normal right ventricle structure and function. Left Atrium Normal left atrial size. Right Atrium Normal right atrial size. Mitral Valve Normal mitral valve structure and function. Aortic Valve There is possibly aortic regurgitation. Tricuspid Valve Normal tricuspid valve structure and function. Pulmonic Valve The pulmonic valve is not well visualized. Pericardial Effusion Mild global pericardial effusion. Miscellaneous IVC is not dilated. Pleural Effusion Possible pleural effusion. Signature dtt: Sindy Flowers dtd: 02/05/17 1342 Physician Self Edit
--- NOTE | ~2017-02-04 | CON ---
PATIENT'S NAME: DALILA ANNA [facility] AGE: 41 Y [address] ROOM: [address] [place], [place] [address] LOCATION: GNTU ADMIT DATE: 02/04/2017 Consultation DISCHARGE DATE: 02/06/2017 FAMILY PHYSICIAN: Adonay Valdez MD ATTENDING PHYSICIAN: Natanael CRUZ DATE OF CONSULTATION: 02/04/2017 REFERRING PHYSICIAN: Marvin Contreras MD TIME SEEN: 04:00 p.m. HISTORY OF PRESENT ILLNESS: Ms Anna is a 41-year-old female patient, who has an unfortunate history of a stage IV metastatic breast cancer to the lungs as well as lesions elsewhere including the skin of scalp. The patient has had a complicated history, which included thoracentesis associated with recent right pleural effusion with shortness of breath. She also has known mediastinal hilar adenopathy with a large metastatic sternal mass. She continues to receive a regimen of chemotherapy for this advanced breast cancer. She has no prior medical history of known seizure or any neurologic deficits in the past. The patient was doing well at home. Unfortunately, she was noticed to have a grand mal seizure with tonic-clonic activity. She was taken emergently to the ER here where the seizure was stopped with benzodiazepine including diazepam as well as being loaded on 1 gram of fosphenytoin. Briefly, continued to require benzodiazepine as there was a possibility that she was still having some generalized seizure activity. She was also postictal and confused. The patient was taken for emergent CAT scan, which showed a hypodensity in the left high posterior parietal region of the brain. There was some evidence of some minor edema around the area, but no significant mass effect was at least seen on the CAT scan. Because of the issue that this may likely be a focal area of metastasis, she was briefly given 10 mg of Decadron with plan to keep her on Decadron further. However, with further review of her CAT scan and without significant edema noted, we decided to stop the Decadron hereafter. I saw the patient upon her arrival in the ICU. Though she was alert and oriented and follows commands, she was extremely agitated and wanted to get out of bed. She briefly had to be put placed in restraints, but this was removed. She did not appear to be delirious, but she certainly had qualities that was suggestive of confusion and some possibility of some mild delirium. Family members were around the bed and trying to calm her down. In discussions with the family, I went over the results of the CAT scan and our plan for further imaging of her brain. I discussed that we will keep her on this antiseizure medication, as is likely noted that this focal area of hypodensities on the left parietal brain is likely the etiology for this new onset of her seizure. Furthermore, I stressed the need for an MRI with and PATIENT'S NAME: DALILA ANNA [facility] AGE: 41 Y [address] ROOM: [place] [address] LOCATION: T ADMIT DATE: 02/04/2017 Consultation DISCHARGE DATE: 02/06/2017 FAMILY PHYSICIAN: Adonay Valdez MD ATTENDING PHYSICIAN: Natanael CRUZ without contrast as it is a possibility that this hypodensity may represent a prior or evolving stroke. Since the patient is more probably hypercoagulable concerning her known malignancy. PRIOR MEDICAL HISTORY: One of breast cancer. She initially started with stage IIB carcinoma of the left breast now with known metastatic disease to the bones, lung, and sternal mass. She was re-treated with radiation therapy to the area of the sternum and to the left sacral region, particularly at the area of the lower lumbar region at L4-L5. SOCIAL HISTORY: from a non-Hodgkin lymphoma earlier at the age of [age] years old. She has a total of 2 children ages 12 and 7. She does not currently drink alcohol or use illicit drugs. FAMILY HISTORY: Her parents are alive with the mother at 70 years old, healthy and father is 73 years old who is known to have prostate cancer. Otherwise is healthy. Parents and limited history is suggestive of cancer in the family. PRIOR SURGICAL HISTORY: Included uterine fibroid removal and the known history of mastectomy with bilateral mastectomy. CURRENT HOME MEDICATIONS: 1. Fluoxetine 40 mg p.o. daily. 2. Oxycodone 60 mg p.o. b.i.d., this for metastatic lesions to the thoracic and vertebral bodies. 3. Quetiapine 25 mg p.o. b.i.d. started today. 4. Dexamethasone, currently on hold. 5. Chemotherapy protocol gemcitabine 1780 mg IV and cisplatin 70 mg tablet, the dosing of that is unknown. 6. Fosphenytoin 150 mg IV b.i.d. PHYSICAL EXAMINATION: GENERAL: The patient was alert, but appears to be very drowsy. She followed all commands, but was quite agitated. She wanted to get up out of bed, but was extremely rambunctious. She was tending to be argumentative currently. VITAL SIGNS: Revealed pulse of 116, regular; respiration rate 29; blood pressure 111/74; temperature is 100.3; her weight is 60.8 kg. CRANIAL NERVES: Pupils are equal and reactive to light and accommodation. Extraocular muscles intact. There is normal facial symmetry and sensation. There is normal bulk and tone of the muscles, though she has thin body habitus. She had grossly normal movements of her limbs, though she tended to PATIENT'S NAME: DALILA ANNA [facility] AGE: 41 Y [address] ROOM: [place] [address] LOCATION: [facility] ADMIT DATE: 02/04/2017 Consultation DISCHARGE DATE: 02/06/2017 FAMILY PHYSICIAN: Adonay Valdez MD ATTENDING PHYSICIAN: Natanael CRUZ be a bit weak in her lower extremities, but seemed to be able to elevate her legs above the bed for at least 5-10 seconds, but tended to drop the legs easily. Her upper extremity power was symmetric in power, grade 5/5. Reflexes were symmetric +2 in the biceps, triceps, brachioradialis, patellar, and ankle jerks. Plantar reflexes are downgoing. Ambulation was not tested presently due to the patient's current medical condition. IMPRESSION: This unfortunate history of this young woman who has known metastatic cancer to multiple regions of her body. This is the first presentation of a seizure, which was clearly a generalized seizure requiring the start of an antiseizure medication of fosphenytoin. We will likely convert this medication to Dilantin once we get her therapeutic on antiseizure medications. She currently is stable. An EEG done early this afternoon did not reveal any focal spike-wave pattern or evidence of seizure activity ongoing presently. The review of her current laboratory results including CBC actually was within normal limits; however, the platelet count was low at 84 and MCV was elevated at 100.3, likely associated with the results of her chemotherapy. Also, had low potassium of 2.9. CPKs were elevated to 229. [place] [address]. PLAN: The patient will receive an MRI of the brain for better elucidation of the focal densities seen on the CAT scan. It is impossible to say if she has a mass or if this is associated with an ischemic stroke at the time unknown. MRI will give us a better idea if this is a solitary lesion or if there are multiple lesions. Currently, due to the fact that she is quite rambunctious and the fact that benzodiazepines are sedating and confuse her, we will place the patient on Seroquel 25 mg twice a day. We will continue to follow with the patient on her neurologic status. MD GAY ROBBINS/barronl /[id number] d: 02/05/171 t: 02/22/17 1326, CONSULTATION REPORT
--- NOTE | ~2017-02-04 | ER ---
PATIENT'S NAME: DALILA RAYA [facility] AGE: 41 Y [address] ROOM: [place] [address] LOCATION: [facility] ADMIT DATE: 02/04/2017 ER/Outpatient Report DISCHARGE DATE: FAMILY PHYSICIAN: Adonay Valdez MD ATTENDING PHYSICIAN: Natanael COSBY CHIEF COMPLAINT: Chest pain, shortness of breath, and seizures. HISTORY OF PRESENT ILLNESS: The patient presents by ambulance after calling EMS. Her initial call was for some chest discomfort and difficulty breathing. During the call, the patient reportedly went unresponsive, but dispenser could hear her breathing. Upon EMS arrival, she was lucid, but then had seizure-like activity that lasted less than 5 minutes per EMS. She was then postictal however during transport she had approximately an another 90 seconds of seizure like activity, which resolved spontaneously prior to arrival in the emergency department. She has a notable history of known metastatic breast cancer and is on multiple medications including chemotherapy with cisplatin for that. She does take OxyContin as needed and is on steroids as well as filgrastim. She also takes fosaprepitant and gemcitabine as well. She has chronically low potassiums. She has had similar fast heart rates and difficulty breathing recently and she has a known right-sided pleural effusion. There is no known complaints until the onset this morning and at that time she called the EMS line. No other available history prior to arrival. PAST MEDICAL HISTORY: Reviewed as documented on the record as elicited from prior records. SOCIAL HISTORY: Reviewed as documented on the record as elicited from prior records. MEDICATIONS: Reviewed as documented on the record as elicited from prior records. ALLERGIES: REVIEWED DOCUMENTED ON THE RECORD ELICITED FROM PRIOR RECORDS. REVIEW OF SYSTEMS: Could not be performed based on the patient's mental status. PHYSICAL EXAMINATION: INITIAL VITAL SIGNS: Blood pressure was not able to be taken upon arrival, heart rate was in the 150s, respiratory rate was 30, labored, temp was 97.9, SpO2 is 98% on 5 L by nasal cannula. She had stabilization of blood pressures PATIENT'S NAME: DALILA RAYA [facility] AGE: 41 Y [address] ROOM: [place] [address] LOCATION: [facility] ADMIT DATE: 02/04/2017 ER/Outpatient Report DISCHARGE DATE: FAMILY PHYSICIAN: Adonay Valdez MD ATTENDING PHYSICIAN: Natanael COSBY later after she was a little more stable; however, she remained hypertensive throughout her stay, please see the tele strip for exact blood pressures. GENERAL: Frail appearing, ill-appearing, female appearing older than her stated age, laying with no significant activity on the exam bed with some occasional deep respirations in no obvious distress. NEURO: The patient has a GCS of 3. She has no meaningful movement at all. Her eyelids are open, but the pupils are not visible. The eyes are dilated and not reactive. They are conjugate and deviated to the left upper region. She is flaccid with no response to pain. HEENT: Grossly normocephalic and atraumatic. The eyes are dilated and minimally responsive. The oropharynx is clear. NECK: Supple. Trachea is midline. Nasal cannula are in place. CHEST: The heart is tachycardic with no obvious murmurs and sinus tach on the monitor. The lungs are grossly clear to auscultation bilateral with diminished breath sounds in the right lower lung castillo. BACK: Grossly normal to inspection. No obvious abnormalities. ABDOMEN: Without any significant masses, swelling, or edema. EXTREMITIES: Cool with strong radial and DP pulses. Brisk capillary refill. SKIN: Skin is cool, but dry and intact; otherwise, peripherally warm centrally. LABS AND X-RAYS: EKG from prehospital and upon arrival reveals sinus tachycardia with no obvious abnormalities other than some slight lateral ST-segment depressions. CMS: Sodium is 141, potassium 3.9, chloride is 104, CO2 is 7, BUN is 23, creatinine is 1.3, and GFR is 45. LFTs are notable for AST of 68. Troponin 0.116, CRP is 1.29, pro-BNP is 14,731. Initial blood gas is pH 6.99, pCO2 is 26, pO2 is 128, bicarb is 6.3, initial lactate is greater than 20. CBC: WBC is 9.0, hemoglobin is 11.3, and platelets of 84. INR is 1.0. Repeat blood gas definitely arterial pH 7.31, pCO2 is 30, pO2 is 91, bicarb is 15.1, repeat lactate is 7.82. There was an erroneous ABG sent that was likely venous in nature. Procalcitonin 0.08. Head CT with left parietal area of concern likely vasogenic edema indicative of possible metastasis, no clear masses, no midline shift, no herniation, and no bleeding. IMPRESSION: 1. Seizure, status epilepticus. 2. Lactic acidosis with lactic acidemia and anion gap acidosis, improved. 3. Persistent encephalopathy. 4. Unresolved tachycardia. 5. Troponin leak, likely demand ischemia. 6. Stage IV breast cancer, currently on chemotherapy. 7. Improving mental status. EMERGENCY DEPARTMENT COURSE: PATIENT'S NAME: DALILA RAYA [facility] AGE: 41 Y [address] ROOM: [place] [address] LOCATION: [facility] ADMIT DATE: 02/04/2017 ER/Outpatient Report DISCHARGE DATE: FAMILY PHYSICIAN: Adonay Valdez MD ATTENDING PHYSICIAN: Natanael COSBY The patient was seen and evaluated as above. Based on EMS report, upon her initial evaluation, I felt as though the patient was postictal and thus did not intervene on her airway, she was maintaining her airway and saturating with supplemental oxygen in the mid-to-low 90s. After a short-time, the patient began to have generalized tonic-clonic seizure like activity and I was concerned that she never actually ceased her initial seizure, but was subclinical. At that time, abortive diazepam 5 mg IV was administered. The patient had very quick resolution of external seizure-like activity. She then began to become very fidgety and encephalopathic. Her eyes were open, she was spontaneously moving all extremities in a semipurposeful manner. She would not move them to command as she was not following commands and was not speaking. She began to pull at her lines including her port access and for that reason soft restraints were placed to ensure that she would not harm herself. In order to facilitate imaging of the brain, she was given a mg of Ativan, which did calm her down enough to obtain that. During that time, the patient had marked improvement in her heart rate down to the 100s. She was always sinus tach on the monitor. We volume resuscitated her with a liter of normal saline; and based on her persistent encephalopathy with presumed prolonged seizure, subclinical and without return to baseline I did administer fosphenytoin. I consulted Dr. Contreras, neurologist via phone and he had no further recommendations other than EEG at that time and will see the patient today. I spoke with Dr. Cosby, hospitalist for further management. He recommended some Narcan, which was given to ensure that she was not suffering from withdrawal. She ultimately did get another total mg of Ativan to help with her significant agitation. She will be taken to the Intensive Care Unit for further evaluation and treatment of these new onset seizures, new DISC INSPECTOR findings, and likely status epilepticus with some hemodynamic instability. The family was updated at bedside of the plan. CRITICAL CARE: Critical care time is warranted for hemodynamically unstable patient with marked encephalopathy with new-onset status epilepticus. She also has some evidence of cardiac injury with troponin elevation and required multiple reevaluations for vital sign assessment, the patient assessment, and mental status assessment at bedside. She was ultimately taken to the Intensive Care Unit in otherwise stable condition. Critical care time is spent directly on the patient evaluation ordering and interpreting chest x-ray, EKG, blood gases, laboratory, and in consult with the neurologist and hospitalist in arranging a bed. All questions were answered for family as best as possible, a Nunes catheter was placed, and the patient was taken to the ICU with persistent encephalopathy not requiring intubation, but definite not returned to baseline mental status. PATIENT'S NAME: DALILA RAYA [facility] AGE: 41 Y [address] ROOM: [place] [address] LOCATION: [facility] ADMIT DATE: 02/04/2017 ER/Outpatient Report DISCHARGE DATE: FAMILY PHYSICIAN: Adonay Valdez MD ATTENDING PHYSICIAN: Natanael COSBY MD ISAKA MILLARD/moe /[id number] d: 02/04/17 2351 t: 02/14/17 0640, OUTPATIENT REPORT
--- NOTE | ~2017-02-04 | NDGEN ---
PATIENT'S NAME: DALILA ANNA [facility] AGE: 41 Y [address] ROOM: [facility] [place], [place] [address] LOCATION: [facility] ADMIT DATE: 02/04/2017 Neurodiagnostics DISCHARGE DATE: FAMILY PHYSICIAN: Adonay Valdez MD ATTENDING PHYSICIAN: Natanael CRUZ PROCEDURE: ELECTROENCEPHALOGRAM DATE OF PROCEDURE: 02/04/2017 TIME: 2:19 p.m. INDICATION: Ms. Anna is a 41-year-old female patient who came in with first generalized seizure. She has a history of metastatic stage IV breast cancer. It is believed that she may have a left parietal metastasis versus an ischemic area of the left brain associated with this generalized seizure. FINDINGS: At the time of this EEG, the patient had been started on fosphenytoin and was not having any active clinical seizures. She was extremely restless during the study, and there was a lot of movement artifact, especially after the first 5 minutes of the 20-minute study. General background rhythm revealed a symmetrical pattern of an alpha rhythm of between 8 and 10 Hz. This remained stable throughout the study. There was no particular slowing. There was no particular asymmetry in the background rhythm. I did not appreciate any epileptiform features such as spike waves. There was no evidence of any active seizure episodes. IMPRESSION: The patient has essentially no evidence of epileptiform features or any evidence of active seizures. She was known to have a recent seizure about 2 hours prior to this study. She is on antiepileptic medications at this time. MD GAY ROBBINS/moe /[id number] P dtt: 02/22/17 1324 , CASSIE ROY dtd: 02/04/17 1631
--- NOTE | ~2017-02-04 | DS ---
PATIENT'S NAME: DALILA RAYA [facility] AGE: 41 Y [address] 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 SECONDARY DIAGNOSES: 1. Breast cancer, metastatic with metastasis to the brain. 2. Severe pancytopenia. 3. Likely pneumonia. 4. Severe lactic acidosis, resolved. HOSPITAL COURSE: A 41-year-old lady with an unfortunate past medical history of metastatic breast cancer, presented to the emergency department at [facility] with a chief complaint of seizures. During the initial evaluation, a CAT scan of the head was done and did not show any acute hemorrhage or midline shift, but did show an irregular area of low attenuation involving white matter at the high left parietal lobe, associated with vasogenic edema. An MRI was recommended, which was done during this hospitalization, which did show multiple small brain metastases, some of them were hemorrhagic. There was a lesion in the left hippocampus. There was right parietal scalp nodule and/or lesion, likely metastasis. Also on blood work, she had severe electrolyte abnormalities including metabolic acidosis and lactic acidosis. She was started on IV Dilantin per Neurology consultation. She was volume resuscitated and her lab abnormality of lactic acidosis resolved. A CAT scan and a chest x-ray also showed right-sided large pleural effusion which had been there for a while now. Pulmonary consultation was obtained, and the patient stated that she is comfortable at this point and does not want the CPU units to be removed at this point and she will return to get these effusions tapped if she becomes short of breath. She did have elevated procalcitonin level in the hospital prompting that she might have infection somewhere, which I believe is likely pneumonia underlying her effusions. We treated her with meropenem and her procalcitonin level improved. She will be discharged on Augmentin for 7 more days. [facility] where her blood work will be repeated. On the day of the discharge, her platelet count was 8, which was expected secondary to the chemo received 1 week ago. We transfused 2 units of platelets prior to discharge. She will have her blood work checked tomorrow and see if she needs more platelets or PRBC transfuse. Neurology recommended a followup with them on 02/08/2017 to check what the Dilantin level is. Her oncologist is Dr. Mcleod and we will set an appointment with him on Tuesday or this . PATIENT'S NAME: DALILA RAYA [facility] AGE: 41 Y [address] ROOM: [address] [place], [place] [address] LOCATION: [facility] ADMIT DATE: 02/04/2017 Discharge Summary DISCHARGE DATE: 02/06/2017 FAMILY PHYSICIAN: Adonay Valdez MD ATTENDING PHYSICIAN: Harjeet Santoyo DISCHARGE MEDICATIONS: New medications are: 1. Dilantin 100 mg p.o. 3 times daily. 2. Augmentin b.i.d. for 7 more days. Other medications include: 1. Senna 1 tablet p.o. p.r.n. 2. Ibuprofen 800 mg p.o. every 6 hours p.r.n. 3. Benzonatate 100 mg p.o. every 4 hours p.r.n. 4. Denosumab 120 mg subcu q.4 weeks. 5. Lidocaine/Prilocaine 1 application. 6. Dexamethasone 8 mg p.o. every day. 7. Fluoxetine 40 mg p.o. every day. 8. Oxycodone tablet 5-50 mg p.o. every 4 hours as needed. 9. OxyContin 60 mg p.o. every 12 hours. 10. Lorazepam 0.5 mg p.o. 3 times daily p.r.n. 11. Zofran 8 mg p.o. every 4 hours p.r.n. 12. Compazine 10 mg p.o. every 4 hours p.r.n. 13. Potassium chloride 20 mEq p.o. twice daily. 14. Dexamethasone 8 mg p.o. twice daily. 15. Magnesium oxide 400 mg p.o. every day. HEMODYNAMICS: On discharge were stable. ACTIVITY: She was advised to not drive for 3 months. Also prevention on swimming was advised for next 3 months. FOLLOWUP APPOINTMENTS: Followup appointment at [facility] tomorrow. Follow up with Neurology in 02/08/2017. Followup appointment with Oncology on 02/10/2017. MD TAYLOR HANCOCK/moe /[id number] d: 02/07/17 0017 t: 02/13/171955, DISCHARGE SUMMARY
[~2017-02-04 09:49] MED LIST changes: -AUGMENTIN250 MG PO; -DECADRON4 MG PO; -DILANTIN100 MG PO; -LIDOCAINE-PRIL1 EACH TOP; -MAGNESIUM400 M1 PO; -SEROQUEL25 MG PO; -TYLENOL325 MG PO; -VALIUM2 MG PO; -XGEVA120 MG/1.7 SUB-Q; -ZYVOX600 MG PO
[2017-02-04 10:17] LABS: BASOPHIL % 0.1 %; EOSINOPHIL % 0.1 %; HEMATOCRIT 35.9 % (33.0-46.0); HEMOGLOBIN 11.3 g/dL (10.0-15.0); IMMATURE GRANULOCYTE # 0.1 K/uL (0.0-0.3); IMMATURE GRANULOCYTE % 0.6 %; LYMPHOCYTE % 11.1 %; MCH 31.6 pg (27.0-34.0); MCHC 31.5 gm/dL (32.0-36.5); MCV 100.3 fl (83.0-98.0); MONOCYTE # 0.1 K/uL (0.0-1.0); MONOCYTE % 0.9 %; NEUTROPHIL # (ANC) 7.9 K/uL (1.8-7.8); NEUTROPHIL % 87.2 %; NRBC % 0 /100WBC (0-0.00); PLATELET COUNT 84 K/uL (150-450); RBC 3.58 M/uL (3.50-5.50); RDW-CV 15.8 % (11.9-14.6)
[2017-02-04 10:24] LABS: PROTIME 10.5 SECONDS (9.8-11.4)
[2017-02-04 10:26] LABS: PTT 33 SECONDS (25-32)
[2017-02-04 10:35] LABS: BICARBONATE 6.3 mmol/L (18.0-23.0); PCO2 26 mmHg (35-45); PO2 128 mmHg (80-90)
[2017-02-04 10:36] LABS: ALBUMIN 3.5 gm/dL (3.5-5.0); CALCIUM 8.6 mg/dL (8.5-10.5); CREATININE 1.3 mg/dL (0.5-1.1); TOTAL PROTEIN 7.2 g/dL (6.0-8.4)
[2017-02-04 10:38] LABS: ANION GAP 33.9 (10.0-19.0); POTASSIUM 3.9 mMol/L (3.7-5.1); TOTAL BILIRUBIN 0.3 mg/dL (0.0-1.5)
[2017-02-04 10:49] LABS: LACTATE > 20.00 mEq/L (0.50-1.60)
[2017-02-04 10:57] LABS: PCO2 44 mmHg (35-45); PO2 15 mmHg (80-90)
[2017-02-04 11:41] LABS: BICARBONATE 15.1 mmol/L (18.0-23.0); PCO2 30 mmHg (35-45); PO2 91 mmHg (80-90)
[2017-02-04 12:31] LABS: BILIRUBIN URINE NEGATIVE (NEGATIVE); BLOOD URINE 50 /UL (NEGATIVE); COLOR URINE COLORLESS (YELLOW); GLUCOSE URINE 250 mg/dL (NEGATIVE); KETONE URINE NEGATIVE (NEGATIVE); LEUKOCYTES URINE NEGATIVE /UL (NEGATIVE); NITRITE URINE NEGATIVE (NEGATIVE); PROTEIN URINE 15 mg/dL (NEGATIVE); SPEC GRAVITY URINE 1.005 (1.003-1.035); TURBIDITY URINE CLEAR (CLEAR); UROBILINOGEN URINE NORMAL (NORMAL)
[2017-02-04 12:40] LABS: BACTERIA URINE NEGATIVE (NEGATIVE); EPITHELIAL URINE NEGATIVE #/HPF (NEGATIVE); RBC URINE RARE #/HPF (NEGATIVE); WBC URINE RARE #/HPF (NEGATIVE)
[2017-02-04 12:50] LABS: AMPHETAMINE NEGATIVE (NEGATIVE); BARBITURATE NEGATIVE (NEGATIVE); COCAINE NEGATIVE (NEGATIVE); OPIATES NEGATIVE (NEGATIVE)
[2017-02-04 14:00] LABS: ALBUMIN 3.5 gm/dL (3.5-5.0); BLOOD UREA NITROGEN 20 mg/dL (6-24); CALCIUM 7.6 mg/dL (8.5-10.5); CHLORIDE 105 mMol/L (96-110); CO2 20 mMol/L (22-32); SODIUM 141 mMol/L (135-145)
[2017-02-04 14:03] LABS: ANION GAP 18.9 (10.0-19.0); ESTIMATED GFR (MDRD EQUATION) > 60; PHOSPHORUS 1.9 mg/dL (2.5-4.9); POTASSIUM 2.9 mMol/L (3.7-5.1)
[2017-02-04] MEDS ORDERED: XGEVA120 MG/1.7 SUB-Q (14:44)
[2017-02-04] MEDS ORDERED: LIDOCAINE-PRIL1 EACH TOP (14:47)
[2017-02-04] MEDS ORDERED: DECADRON4 MG PO ×2 (14:50→14:52)
[2017-02-04] MEDS ORDERED: MAGNESIUM400 M1 PO (14:54)
[2017-02-04] MEDS ORDERED: ZYVOX600 MG PO (15:02)
[2017-02-05 12:23] LABS: INR - (THERAPEUTIC) 1.08 (0.92-1.07); PROTIME 11.4 SECONDS (9.8-11.4)
[2017-02-05 12:30] LABS: ALBUMIN 3.1 gm/dL (3.5-5.0); ALK PHOS 83 IU/L (33-138); ALT 40 IU/L (12-78); AST 38 IU/L (10-40); BLOOD UREA NITROGEN 21 mg/dL (6-24); CHLORIDE 106 mMol/L (96-110); CO2 24 mMol/L (22-32); CREATININE 0.9 mg/dL (0.5-1.1); ESTIMATED GFR (MDRD EQUATION) > 60; SODIUM 141 mMol/L (135-145); TOTAL PROTEIN 6.4 g/dL (6.0-8.4)
[2017-02-05 12:31] LABS: ANION GAP 13.9 (10.0-19.0); CALCIUM 6.6 mg/dL (8.5-10.5); POTASSIUM 2.9 mMol/L (3.7-5.1); TOTAL BILIRUBIN 0.4 mg/dL (0.0-1.5)
[2017-02-05 12:58] LABS: HEMOGLOBIN 8.8 g/dL (10.0-15.0); MCH 31.3 pg (27.0-34.0); RBC 2.81 M/uL (3.50-5.50)
[2017-02-05 12:59] LABS: MCHC 35.2 gm/dL (32.0-36.5)
[2017-02-05 13:03] LABS: PLATELET COUNT 14 K/uL (150-450)
[2017-02-05 13:28] LABS: ABSOLUTE NEUTROPHIL CT (ANC) 3.8 K/uL (1.8-7.8); BANDED NEUTROPHIL # 0.1 K/uL (0.0-0.1); BANDED NEUTROPHILS % 3 %; LYMPHOCYTE # 0.2 K/uL (0.8-4.0); LYMPHOCYTE % 6 %; SEGMENTED NEUTROPHIL # 3.6 K/uL (1.8-7.8); SEGMENTED NEUTROPHIL % 91 %
[2017-02-05 16:47] LABS: BILIRUBIN URINE NEGATIVE (NEGATIVE); BLOOD URINE 10 /UL (NEGATIVE); GLUCOSE URINE NEGATIVE (NEGATIVE); KETONE URINE NEGATIVE (NEGATIVE); LEUKOCYTES URINE NEGATIVE /UL (NEGATIVE); NITRITE URINE NEGATIVE (NEGATIVE); PROTEIN URINE 30 mg/dL (NEGATIVE); SPEC GRAVITY URINE 1.005 (1.003-1.035); UROBILINOGEN URINE NORMAL (NORMAL)
[2017-02-05 16:54] LABS: COLOR URINE YELLOW (YELLOW); TURBIDITY URINE CLEAR (CLEAR)
[2017-02-05 16:56] LABS: WBC URINE 0-2 #/HPF (NEGATIVE)
[2017-02-05 16:58] LABS: BACTERIA URINE FEW (NEGATIVE)
[2017-02-06 04:05] LABS: ALBUMIN 2.9 gm/dL (3.5-5.0); ALK PHOS 72 IU/L (33-138); ALT 33 IU/L (12-78); ANION GAP 16.1 (10.0-19.0); AST 24 IU/L (10-40); BLOOD UREA NITROGEN 16 mg/dL (6-24); CHLORIDE 110 mMol/L (96-110); CO2 19 mMol/L (22-32); CREATININE 0.7 mg/dL (0.5-1.1); ESTIMATED GFR (MDRD EQUATION) > 60; POTASSIUM 3.1 mMol/L (3.7-5.1); SODIUM 142 mMol/L (135-145); TOTAL BILIRUBIN 0.4 mg/dL (0.0-1.5); TOTAL PROTEIN 5.9 g/dL (6.0-8.4)
[2017-02-06 04:10] LABS: HEMOGLOBIN 7.3 g/dL (10.0-15.0); MCH 31.1 pg (27.0-34.0); MCHC 34.8 gm/dL (32.0-36.5); MCV 89.4 fl (83.0-98.0); RBC 2.35 M/uL (3.50-5.50); RDW-CV 16.1 % (11.9-14.6); WBC 2.3 K/uL (4.0-11.0)
[2017-02-06 04:14] LABS: PLATELET COUNT 8 K/uL (150-450)
[2017-02-06 04:49] LABS: ABSOLUTE NEUTROPHIL CT (ANC) 2.2 K/uL (1.8-7.8); BANDED NEUTROPHILS % 1 %; LYMPHOCYTE # 0.1 K/uL (0.8-4.0); LYMPHOCYTE % 6 %; SEGMENTED NEUTROPHIL # 2.1 K/uL (1.8-7.8); SEGMENTED NEUTROPHIL % 93 %
[2017-02-06] MEDS ORDERED: DILANTIN100 MG PO (10:33)
[2017-02-06] MEDS ORDERED: SEROQUEL25 MG PO (10:45)
[2017-02-06] MEDS ORDERED: AUGMENTIN250 MG PO (10:55)
[2017-03-03] MEDS ORDERED: TESSALON PERLE100 MG PO (13:11)
[2017-03-03] MEDS ORDERED: IBUPROFEN800 MG PO (13:12)
[2017-04-20] MEDS ORDERED: VALIUM2 MG PO (09:42)
[2017-04-20] MEDS ORDERED: TYLENOL325 MG PO (09:43)
== END 2017-02-06 13:20 | disposition disaster alternative care site (69) | DRG 100 ==
LOC: GMED 09:49 → GICU 12:21 → GNTU 12:21 → GICU 02-05 11:52 → GNTU 02-05 13:06
PROVIDERS: Emergency Medicine; Family Medicine; Internal Medicine; ADMIT Internal Medicine
PROC: 30233N1 Transfusion of Nonautologous Red Blood Cells into Peripheral Vein, Percutaneous Approach (ICD-10-PCS; principal; 2017-02-06)
DX: G40.909 Epilepsy, unspecified, not intractable, without status epilepticus (principal); J18.9 Pneumonia, unspecified organism; G93.6 Cerebral edema; G93.40 Encephalopathy, unspecified; D61.818 Other pancytopenia; J90 Pleural effusion, not elsewhere classified; C79.31 Secondary malignant neoplasm of brain; E87.2 Acidosis; C50.919 Malignant neoplasm of unspecified site of unspecified female breast; Z78.1 Physical restraint status
CPT/HCPCS: G0480; J0610; J1100; J1642; J2060; J2185; J2310; J3360; J3475; J3480; J7030; J7040; J7050; J7120; P9035; Q0162; Q0164; Q2009; Q9967

== ENCOUNTER → 2017-02-04 | Outpatient (CLI) | payer BC ==
[~2017-02-04] MED LIST changes: +AUGMENTIN250 MG PO; +DECADRON4 MG PO; +DILANTIN100 MG PO; +IBUPROFEN800 MG PO; +LIDOCAINE-PRIL1 EACH TOP; +MAGNESIUM400 M1 PO; +PROZAC40 MG PO; +ROBITUSSIN100 MG/5 M PO; +SENNA8.6 MG PO; +SEROQUEL25 MG PO; +TESSALON PERLE100 MG PO; +TYLENOL325 MG PO; +VALIUM2 MG PO; +XGEVA120 MG/1.7 SUB-Q; +ZYVOX600 MG PO
== END | disposition disaster alternative care site (69) ==
LOC: GAMB 09:18
DX: F41.9 Anxiety disorder, unspecified (principal); R06.02 Shortness of breath; R20.0 Anesthesia of skin; R06.9 Unspecified abnormalities of breathing; Z79.899 Other long term (current) drug therapy
CPT/HCPCS: A0422; A0425; A0427

== ENCOUNTER → 2017-02-14 | Outpatient (CLI) | payer BC ==
[~2017-02-14] MED LIST changes: +AUGMENTIN250 MG PO; +DECADRON4 MG PO; +DILANTIN100 MG PO; +LIDOCAINE-PRIL1 EACH TOP; +MAGNESIUM400 M1 PO; +SEROQUEL25 MG PO; +TYLENOL325 MG PO; +VALIUM2 MG PO; +XGEVA120 MG/1.7 SUB-Q; +ZYVOX600 MG PO
== END | disposition disaster alternative care site (69) ==
LOC: GPOC 12:00 → GOPP 12:29
DX: C79.31 Secondary malignant neoplasm of brain (principal)
CPT/HCPCS: J1642; J3475; J7030; J7040

== ENCOUNTER → 2017-03-04 | Outpatient (CLI) | payer BC ==
[2017-03-04 15:29] LABS: INR - (THERAPEUTIC) 0.94 (0.92-1.07); PROTIME 9.9 SECONDS (9.8-11.4)
== END | disposition disaster alternative care site (69) ==
LOC: GOPD 03-03 10:00
PROVIDERS: Physician Assistant
PROC: 0W993ZZ Drainage of Right Pleural Cavity, Percutaneous Approach (ICD-10-PCS; principal; 2017-03-04)
DX: C79.31 Secondary malignant neoplasm of brain (principal); C80.1 Malignant (primary) neoplasm, unspecified; J94.8 Other specified pleural conditions

== ENCOUNTER → 2017-03-22 | Outpatient (CLI) | payer BC | END | disposition disaster alternative care site (69) | LOC: GRAD 15:28 | DX: C78.00 Secondary malignant neoplasm of unspecified lung (principal); C79.51 Secondary malignant neoplasm of bone; C50.912 Malignant neoplasm of unspecified site of left female breast; J90 Pleural effusion, not elsewhere classified; R06.02 Shortness of breath | CPT/HCPCS: Q9967 ==

== ENCOUNTER → 2017-04-05 | Outpatient (CLI) | payer BC | END | disposition disaster alternative care site (69) | LOC: GKIC 11:20 | DX: C79.31 Secondary malignant neoplasm of brain (principal); C79.51 Secondary malignant neoplasm of bone; J90 Pleural effusion, not elsewhere classified; R59.0 Localized enlarged lymph nodes | CPT/HCPCS: A9552 ==

== ENCOUNTER → 2017-04-14 | Outpatient (CLI) | payer BC ==
[2017-04-14 13:00] LABS: INR - (THERAPEUTIC) 0.99 (0.92-1.07); PROTIME 10.4 SECONDS (9.8-11.4)
== END | disposition disaster alternative care site (69) ==
LOC: GOPD 04-13
PROVIDERS: Internal Medicine
PROC: 0W993ZZ Drainage of Right Pleural Cavity, Percutaneous Approach (ICD-10-PCS; principal; 2017-04-14)
DX: J90 Pleural effusion, not elsewhere classified (principal); C79.31 Secondary malignant neoplasm of brain

== ENCOUNTER 2017-04-19 08:39 | Emergency (ER) | payer BC ==
--- NOTE | ~2017-04-19 | ER ---
[facility] 41 Y [address] ROOM: [place] [address] LOCATION: [facility] ADMIT DATE: 04/19/2017 ER/Outpatient Report DISCHARGE DATE: 04/19/2017 FAMILY PHYSICIAN: Adonay Valdez MD ATTENDING PHYSICIAN: Rosalina Rock Time of Arrival: 0839 hours. Time seen: 0857 hours. ID: A 41-year-old female. CHIEF COMPLAINT: Back pain. HISTORY OF PRESENT ILLNESS: The patient is a 41-year-old female with a history of metastatic breast cancer, currently undergoing chemotherapy, who has right low back pain for the last 12+ hours. Pain is worse with movement. She said nothing she has done has relieved it including the pain medicines she is currently taking. She has had no fall or injury. She describes it as a constant pain radiating upward on her right side. No abdominal pain. She has nausea, but it is her usual state of nausea with no change. No dysuria. No increased frequency of urination. No fever or chills. She is due for chemotherapy today. ALLERGIES: SULFA. CURRENT MEDICATIONS: 1. Dilantin. 2. Senna. 3. . 4. Benzonatate. 5. Denosumab. 6. Dexamethasone. 7. Fluoxetine. 8. Oxycodone 5 to 50 mg every 4 hours as needed. 9. OxyContin 60 mg every 12 hours. 10. Lorazepam. 11. Zofran. 12. Compazine. 13. KCl. 14. Magnesium. MEDICAL PROBLEMS: [facility]GE[facility] 41 Y [address] ROOM: [place] [address] LOCATION: [facility] ADMIT DATE: 04/19/2017 ER/Outpatient Report DISCHARGE DATE: 04/19/2017 FAMILY PHYSICIAN: Adonay Valdez MD ATTENDING PHYSICIAN: Rosalina Rock Increased right pleural effusion status post thoracentesis. Stage IV breast cancer diagnosed in 2012 with metastasis to brain, lung, and bones. Hospitalization in January for seizures. PAST SURGICAL HISTORY: Bilateral mastectomy, fibroid removal, hernia, section x2. FAMILY HISTORY: Father with prostate cancer. SOCIAL HISTORY: The patient's from non-Hodgkin's lymphoma at age 36. She has two children ages 7 and 12. Tobacco use, none. Alcohol use, none currently. Drug use, denies. REVIEW OF SYSTEMS: All systems reviewed and negative other than what is noted in the HPI with the exception of she has a wound on her anterior chest which is tumor related. It was the size it is now, but all scabbed over and it is "broken open." The patient said Dr. Valdez and her oncologist, Dr. Mcleod are aware of this, but have not seen it since the scab has come off. PHYSICAL EXAMINATION: VITAL SIGNS: Weight 59.3 kg, blood pressure 187/101, pulse 102, respirations 18, temperature 96.6, and saturations 98%. Recheck blood pressure 158/78, and pulse 91. GENERAL: A 41-year-old female, in obvious distress. HEENT: Head: Normocephalic and atraumatic. Ears: TMs not visualized. Eyes: Pupils equal and reactive to light and accommodation. Extraocular movements intact. Nose: Mucosa pink. No lesions. Mouth: No lesions. Pharynx benign. NECK: Supple. No lymphadenopathy. LUNGS: Clear to auscultation. HEART: Regular rate and rhythm. CHEST: The patient has a port on the right upper chest. No surrounding erythema. The patient has tumor with erosion just to the left of midline in her upper chest, minimal ring of surrounding erythema. No warmth. The patient does have some necrotic drainage which was cultured. ABDOMEN: Bowel sounds present. Soft, nondistended, diffusely tender to deep palpation. No rebound or guarding. SKIN: [place], warm, and dry. Lesion on the anterior chest as noted above. NEURO: The patient is alert and oriented x4. Cranial nerves 2 through 12 grossly intact. Motor strength 5/5 throughout. Sensation is intact to light touch. No lower extremity edema. No calf tenderness. PATIENT'S NAME: DALILA RAYA [facility] AGE: 41 Y [address] ROOM: [place], [place] [address] LOCATION: ED ADMIT DATE: 04/19/2017 ER/Outpatient Report DISCHARGE DATE: 04/19/2017 FAMILY PHYSICIAN: Adonay Valdez MD ATTENDING PHYSICIAN: Rosalina Rock EMERGENCY DEPARTMENT COURSE: An IV was initiated. The patient was given morphine and Zofran for pain and nausea. Valium was given for muscle relaxant and the patient's pain improved from 10 to 3. Lactate is normal at 1.1. Blood cultures x2 are pending. One from the port and one peripheral. Hemoglobin 10.7, which is stable. Hematocrit 30.2. Platelets 120, which are lower than April 18 when they were 163. They have been as low as 8000 in January 2017. White count 6.9, 82% segs, 5% bands, INR 1.07, procalcitonin 0.10. Recent PET scan dated April 05, metabolically active right and left supraclavicular lymph node, sternal mass, large right pleural effusion with pleural fluid volume in the right hemithorax, extensive adenopathy of the mediastinum and right hilum, persistent small focus of increased activity in the musculature posterior to the inferior portion of the right scapula, right retrocrural mass increased in size and intensity, small area of increased activity at the right-side of L4. Metabolically active node in the left inguinal area. New metabolically active bone in the left iliac bone. New metabolically active bone lesion at the intertrochanteric portion of the left femur. Wound culture pending. Gram stain positive for many gram-positive cocci, many gram-positive rods and moderate white blood cells. Lumbar spine CT, metastatic bone destruction of the right pedicle and posterior elements of L3 as seen on previous MRI 2015. CT scan of the chest, abdomen, and pelvis with no contrast. The right hemithorax shows a large pleural effusion. Multiple tiny pulmonary nodules are seen. No significant change compared with 523. Rib cage shows no acute fractures. No pneumothorax. Solid organs of the upper abdomen are normal. IMPRESSION: Right-sided musculoskeletal pain. No pathologic fractures identified. PLAN: 1. Discussed with Dr. Mcleod oncologist, the patient, and her brother-in- law. The patient will be discharged and we will maximize pain control. She will continue her current pain medications. She was given Valium here for spasm. We will add Valium 2 mg one-half to one tab p.o. t.i.d. p.r.n. spasm. Ice or heat. Continue current pain management. 2. Breast cancer, chemotherapy approved today per Dr. Mcleod. 3. Large pleural effusion. Dr. Mcleod will make arrangements for outpatient thoracentesis. He will also make arrangements for outpatient MRI of her spine with regard to the lesion at L3. 4. Thrombocytopenia. 5. Anemia. 6. Chest wound with necrotic tumor. Culture pending. Dr. Mcleod to follow up and make arrangements for wound care. PATIENT'S NAME: DALILA RAYA [facility] AGE: 41 Y [address] ROOM: [place] [address] LOCATION: [facility] ADMIT DATE: 04/19/2017 ER/Outpatient Report DISCHARGE DATE: 04/19/2017 FAMILY PHYSICIAN: Adonay Valdez MD ATTENDING PHYSICIAN: Rosalina Rock ROSALINA ROCK MD CAR/modl /[id number] d: 04/19/172301 t: 04/20/172056, OUTPATIENT REPORT
[~2017-04-19 08:39] MED LIST changes: -TYLENOL325 MG PO; -VALIUM2 MG PO
[2017-04-19 09:29] LABS: HEMATOCRIT 30.2 % (33.0-46.0); HEMOGLOBIN 10.7 g/dL (10.0-15.0); MCH 33.6 pg (27.0-34.0); MCHC 35.4 gm/dL (32.0-36.5); MPV 11.6 fl (9.4-12.4); RBC 3.18 M/uL (3.50-5.50); RDW-CV 16.1 % (11.9-14.6); WBC 6.9 K/uL (4.0-11.0)
[2017-04-19 09:30] LABS: PLATELET COUNT 120 K/uL (150-450)
[2017-04-19 09:37] LABS: INR - (THERAPEUTIC) 1.07 (0.92-1.07); PROTIME 11.2 SECONDS (9.8-11.4); PTT 39 SECONDS (25-32)
[2017-04-19 10:10] LABS: BANDED NEUTROPHIL # 0.3 K/uL (0.0-0.1); BANDED NEUTROPHILS % 5 %; LYMPHOCYTE # 0.4 K/uL (0.8-4.0); LYMPHOCYTE % 6 %; MONOCYTE # 0.4 K/uL (0.0-1.0); SEGMENTED NEUTROPHIL # 5.7 K/uL (1.8-7.8); SEGMENTED NEUTROPHIL % 82 %
[2017-04-20] MEDS ORDERED: VALIUM2 MG PO (09:42)
[2017-04-20] MEDS ORDERED: TYLENOL325 MG PO (09:43)
== END 2017-04-19 11:27 | disposition disaster alternative care site (69) ==
LOC: GMED 08:39
PROVIDERS: Family Medicine
DX: M54.5 Low back pain (principal); C50.912 Malignant neoplasm of unspecified site of left female breast; J90 Pleural effusion, not elsewhere classified; D69.6 Thrombocytopenia, unspecified; C50.911 Malignant neoplasm of unspecified site of right female breast; C78.00 Secondary malignant neoplasm of unspecified lung; D49.89 Neoplasm of unspecified behavior of other specified sites; C79.31 Secondary malignant neoplasm of brain; C79.51 Secondary malignant neoplasm of bone; Z79.899 Other long term (current) drug therapy; Z88.2 Allergy status to sulfonamides; Z90.13 Acquired absence of bilateral breasts and nipples; Z98.890 Other specified postprocedural states
CPT/HCPCS: J2270; J2405; J3360

== ENCOUNTER → 2017-04-21 | Outpatient (CLI) | payer BC ==
[~2017-04-21] MED LIST changes: +TYLENOL325 MG PO; +VALIUM2 MG PO
== END | disposition disaster alternative care site (69) ==
LOC: GOPD 04-20 09:00
PROC: 0W993ZZ Drainage of Right Pleural Cavity, Percutaneous Approach (ICD-10-PCS; principal; 2017-04-21)
DX: C79.31 Secondary malignant neoplasm of brain (principal); J90 Pleural effusion, not elsewhere classified; J93.9 Pneumothorax, unspecified

== ENCOUNTER → 2017-04-26 | Outpatient (CLI) | payer BC | END | disposition disaster alternative care site (69) | LOC: GRAD 13:32 | DX: C79.31 Secondary malignant neoplasm of brain (principal); C79.51 Secondary malignant neoplasm of bone | CPT/HCPCS: A9577 ==